=== PATIENT | female | born 1990 | race Caucasian/White ===

== ENCOUNTER 2018-02-01 10:24 | Emergency (ER) | payer OTHER, MEDICAID, SELFPAY ==
[2018-02-01 10:34] VITALS: BP 140/72; PULSE 94; RESP 15; TEMP 37.3; O2SAT 99; BMI 23.6
--- NOTE | 2018-02-01 12:08 | DI.CT.S_ITS ---
PROCEDURE: CT FACIAL BONES W CON INDICATIONS: right mandibular swelling w/ trismus - abscess? jazzy's? TECHNIQUE: After the administration of intravenous contrast, 2.5 mm axial sections acquired from the mid-neck to the frontal sinuses, with coronal and sagittal reformats. For radiation dose reduction, the following was used: automated exposure control, adjustment of mA and/or kV according to patient size. COMPARISON: None. FINDINGS: Image quality: Excellent. Soft tissues: Mild subcutaneous fat stranding overlies the right mandible. No masses, nor focal fluid collections. There is a mild enlargement of the right submandibular gland. No enlarged lymph nodes. Vascular: Visualized vascular structures appear patent throughout. Bony vascular foramina and canals appear normal. Bones: Facial bones appear intact, without fractures, erosions, or destruction. Visualized portions of the skull base and auditory canals also appear normal. Sinuses: Mild left and moderate right maxillary sinus mucosal thickening. Paranasal sinuses are otherwise aerated without fluid levels, mucosal thickening, or mucoceles. Mastoid air cells are aerated. IMPRESSION: Right facial cellulitis and right submandibular sialadenitis with no evidence of abscess. Dictated by: Deon Calderon M.D. on 02/01/2018 at 13:07 Approved by: Deon Calderon M.D. on 02/01/2018 at 13:09
[2018-02-01 12:51] LABS: Add Manual Diff / Slide Review NO; Basophils Percent Auto 0.1 % (0-2); Eosinophils Percent Auto 0.3 % (2-4); Hematocrit 40.4 % (36-46); Hemoglobin 13.7 g/dL (12.0-16.0); Lymphocytes Percent Auto 4.7 % (25-40); Mean Corpuscular HGB Conc 33.9 % (30-36); Mean Corpuscular Hemoglobin 32.6 PG (26-34); Mean Corpuscular Volume 96.1 fL (80-100); Monocytes Percent Auto 6.1 % (3-14); Neutrophils Absolute Auto 11900 /uL (3000-5900); Neutrophils Percent Auto 88.8 % (50-75); Platelet Count 150 X10^3/uL (150-400); Red Blood Cell Count 4.21 X10^6/uL (4.0-5.2); Red Cell Distribution Width 13.1 % (11.6-14.8); White Blood Cell Count 13.4 X10^3/uL (4.5-11.0)
[2018-02-01 12:55] LABS: Blood Urea Nitrogen 8 mg/dL (7-17); Calcium 9.1 mg/dL (8.4-10.2); Carbon Dioxide 27 mmol/L (22-32); Chloride 104 mmol/L (98-107); Estimated Glomerular Filt Rate > 60.0 mL/min (>60); Glucose 91 mg/dL (70-100); HEMOLYSIS 15 (0-50); Potassium 4.2 mmol/L (3.4-5.1); Sodium 139 mmol/L (137-145)
[2018-02-01] MEDS: SODIUM CHLORIDE 0.9% 1,000 ML 1000 ML IV (13:00)
[2018-02-01] MEDS: KETOROLAC 60 MG/2 ML VIAL 30 MG IV (13:00)
[2018-02-01] MEDS: DEXAMETHASONE 10 MG/ML VIAL IV (13:02)
[2018-02-01] MEDS: PIPERACILLIN-TAZO 4.5 GM/100 ML FROZ.PIGGY IV (13:08)
[2018-02-01] MEDS: KETAMINE 500 MG/5 ML INJ 10 MG IV (13:08)
[2018-02-01 15:42] VITALS: BP 109/61; PULSE 93; RESP 20; TEMP 38.2; O2SAT 100
--- NOTE | 2018-02-01 15:42 | PC.NURSE ---
Pt is wishing to be discharged. Has a wedding she is in today and wants to check on her daughter. At this time, pt has temperature of 100.8 and feels like she is getting worse. Discussed with provider. Pt still wanting to leave, but will come right back this evening. Provider discussed risk of increased swelling in this area and to call 911 if swelling is increased and she is experiencing difficulty breathing. Pt demonstrates understanding.
--- NOTE | 2018-02-01 15:57 | ED_ITS ---
HPI - Dental/Oral General Chief complaint: Dental/Oral Stated complaint: 2 ABCESS TEETH, THROAT SWOLLEN History of Present Illness HPI Narrative: HPI 27-year-old female smoker with poor dentition and prior opiate dependency now on Suboxone presents with worsening right mandibular pain, swelling, and new onset trismus in the setting of evaluation yesterday by her dentist and initiation of azithromycin for a dental infection/abscess. Denies neck stiffness , swelling on the floor of her mall, fevers, chills, headache, changes in vision or hearing. M/S/F/SocHx notable for: please see HPI; remainder reviewed with patient and in chart. ROS: Negative constitutional, eye, cardiovascular, pulmonary, GI, , MSK, skin , neurologic, psychiatric, endocrine unless noted in the HPI. Exam HR 94, BP 140/72, RR 15, T 99.1 ?F, SaO2 99 % on room air; at 10:34 AM. Gen: Pleasant, non-toxic appearing, resting comfortably HEENT: NC, AT, PEERL, EOMI. Mouth: soft tissue swelling, tenderness, but without erythema or warmth, or crepitus overlying the right mandibular job, trismus present with patient able to open mouth approximately 1.5 cm, markedly poor molar dentition on the right mandibular job, no clear gumline swelling, floor of the mouth soft without swelling or tongue elevation, no peritonsilar swelling bilaterally, uvula midline, moist mucus membranes without lesions, tongue without plaques or lesions,gumline without significant ulcerations, no bleeding, no marked halitosis. Neck: Supple with a full range of motion, no swelling, no cervical lymphdenopathy, no difficulty swallowing. Resp: Clear to auscultation bilaterally, normal work of breathing, no accessory muscle usage. Card: Regular rate and rhythm with no murmurs, rubs, or gallops, extremities warm and well perfused. GI: non-distended MSK: No visible deformities, strength and tone without visually appreciable deficit. Skin: Normal color with no visible lesions. Neuro: AO x 3, no facial asymmetry, vision and hearing WNL. Psych: Mood and affect appropriate. Labs / Imaging (pertinent): CT Maxillofacial with contrast: right facial cellulitis and right submandibular sialoadenitis with no evidence of abscess. WBC 13.4, HB 13.7, sodium 139, potassium 4.2. MDM Previous chart, nursing note, and vitals reviewed. A: 83-year-old female presents after mechanical fall from standing height with a left lateral orbital rim laceration (2/2 impact from glasses), left knee pain , and left chest wall pain. DDX: caries, pulpitis, gingivitis, periodontitis, periapical abscess, jaw osteomyelitis, Ludgwig's angina, acute necrotizing gingivitis. ED Course: 1 L NS, 30 mg Toradol, 10 mg ketamine, 10 mg Decadron, and 4.5 g Zosyn given for initial treatment. Patient with significant decrease in her trismus. Patient remains well appearing and without malaise. Discussed with ENT spa consultant, Dr. Beasley. Recommended discharge with return to care in 24 hours. Patient discharged on clindamycin. After extensive discussion with the patient regarding pain control, the option for ibuprofen and acetaminophen versus holding Suboxone for duration of opiate analgesia with resumption of Suboxone, patient wished to Patient given 10 mg oxycodone ER in the emergency department. At discharge vitals patient noted to be febrile with a temperature of 100.8?F, blood pressure and heart rate stable, discussed with the patient was the recommendation for observation hospitalization. Patient wishes to be discharged and made an informed decision. Patient is intending that she wishes to attend. Recommended patient return to care this evening for repeat evaluation. RX for clindamycin provided, RX for oxycodone 10 mg x 2 provided. Impression: facial cellulitis, submandibular sialoadenitis. (please reference below for remainder of encounter information) Related Data Previous Rx's Medication Instructions Recorded gabapentin [Neurontin] 600 mg PO TID #180 cap 01/06/16 Allergies Allergy/AdvReac Type Severity Reaction Status Date / Time acetaminophen Allergy Severe HIVES Verified 02/01/18 10:34 [From TYLENOL-CODEINE #3] codeine Allergy Severe HIVES Verified 02/01/18 10:34 [From TYLENOL-CODEINE #3] nifedipine [NIFEDIPINE] Allergy Severe HIVES Verified 02/01/18 10:34 Exam Initial Vital Signs Initial Vital Signs: Vital Signs Temperature 99.1 F 02/01/18 10:34 Pulse Rate 94 H 02/01/18 10:34 Respiratory Rate 15 02/01/18 10:34 Blood Pressure 140/72 H 02/01/18 10:34 Pulse Oximetry 99 02/01/18 10:34 Course Orders Ordered: ED Orders 02/01/18 12:08 CT facial bones w con Stat 02/01/18 12:36 Basic Metabolic Panel Stat Complete Blood Count AUTO DIFF Stat Oxycodone HCl (Oxycontin) 10 mg PO BID RADHA Discontinued Medications Dexamethasone (Decadron) 10 mg IV NOW ONE Stop: 02/01/18 12:09 Last Admin: 02/01/18 13:02 Dose: 10 mg Piperacillin/Tazobactam/Dextrose (Zosyn) 4.5 gm in 100 mls @ 200 mls/hr IV NOW ONE Stop: 02/01/18 12:37 Last Infusion: 02/01/18 14:04 Dose: 0 mls/hr Admin: 02/01/18 13:08 Dose: 200 mls/hr Sodium Chloride (Normal Saline 0.9%) 1,000 mls @ 1,000 mls/hr IV BOLUS ONE Stop: 02/01/18 13:07 Last Infusion: 02/01/18 15:41 Dose: 0 mls/hr Admin: 02/01/18 13:00 Dose: 1,000 mls/hr Ketamine HCl (Ketalar) 10 mg IV NOW ONE Stop: 02/01/18 12:09 Last Admin: 02/01/18 13:08 Dose: 10 mg Ketorolac Tromethamine (Toradol) 30 mg IV NOW ONE Stop: 02/01/18 12:09 Last Admin: 02/01/18 13:00 Dose: 30 mg Vital Signs - 8 hr 02/01/18 10:34 02/01/18 15:42 Temperature 99.1 F 100.8 F H Pulse Rate 94 H 93 H Respiratory Rate 15 20 Blood Pressure 140/72 H Blood Pressure [Right Arm] 109/61 Pulse Oximetry 99 100 MDM - Dental/Oral Lab Data Result diagrams: 02/01/18 12:36 02/01/18 12:36 Lab Results 02/01/18 02/01/18 Range/Units 12:36 12:36 WBC 13.4 H (4.5-11.0) X10^3/uL RBC 4.21 (4.0-5.2) X10^6/uL Hgb 13.7 (12.0-16.0) g/dL Hct 40.4 (36-46) % MCV 96.1 (80-100) fL MCH 32.6 (26-34) PG MCHC 33.9 (30-36) % RDW 13.1 (11.6-14.8) % Plt Count 150 (150-400) X10^3/uL Neut % (Auto) 88.8 H (50-75) % Lymph % (Auto) 4.7 L (25-40) % Mcintosh % (Auto) 6.1 (3-14) % Eos % (Auto) 0.3 L (2-4) % Baso % (Auto) 0.1 (0-2) % Neut # (Auto) 39102 H (8798-0568) /uL Sodium 139 (137-145) mmol/L Potassium 4.2 (3.4-5.1) mmol/L Chloride 104 (98-107) mmol/L Carbon Dioxide 27 (22-32) mmol/L BUN 8 (7-17) mg/dL Creatinine 0.50 L (0.52-1.04) mg/dL Estimated GFR > 60.0 (>60) mL/min BUN/Creatinine Ratio 16.0 (6-22) Glucose 91 (70-100) mg/dL Calcium 9.1 (8.4-10.2) mg/dL Discharge Plan Departure Prescriptions: No Action gabapentin [Neurontin] 300 MG capsule 600 mg PO TID Qty: 180 RF: 2
[2018-02-01] MEDS: ACETAMINOPHEN 325 MG TABLET 975 MG PO (16:04)
[2018-02-01] MEDS: OXYCODONE ER 10 MG TAB PO (16:05)
== END 2018-02-01 16:09 | disposition home or self-care (01) ==
PROVIDERS: Emergency Provider Emergency Medicine; PCP Family Medicine
DX: K11.20 Sialoadenitis, unspecified (principal); L03.211 Cellulitis of face
CPT/HCPCS: 36591; 70487; 80048; 85025; 96361; 96365; 96375; 99283; 99285; J1100; J1885; J2543; Q9967

== ENCOUNTER → 2019-08-19 10:41 | Outpatient (CLI) | payer OTHER, MEDICAID, SELFPAY ==
[2019-08-19 14:31] LABS: UR Morphine/Opiate cutoff 300 Negative (Negative); Ur Creatinine Normal (Normal); Ur Specific Gravity Normal (Normal); Urine Amphetamines Negative (Negative); Urine Barbiturates Negative (Negative); Urine Benzodiazepines Negative (Negative); Urine Cocaine Negative (Negative); Urine MDMA Negative (Negative); Urine Methadone Negative (Negative); Urine Methamphetamines Negative (Negative); Urine Oxycodone Negative (Negative); Urine Phencyclidine Negative (Negative); Urine Tetrahydrocannabinol Negative (Negative); Urine Tricyclic Antidepressant Negative (Negative); Urine pH Normal (Normal)
== END ==
PROVIDERS: Visit Provider Family Medicine
DX: Z34.81 Encounter for supervision of other normal pregnancy, first trimester (principal); Z3A.09 9 weeks gestation of pregnancy
CPT/HCPCS: 80305

== ENCOUNTER → 2019-11-06 17:44 | Outpatient (CLI) | payer OTHER, MEDICAID, SELFPAY ==
--- NOTE | 2019-11-06 17:45 | DI.US.S_ITS ---
PROCEDURE: US OB >= 14 WEEKS FETUS INDICATIONS: ANATOMIC SURVEY OUTSIDE/PRIOR DATING DATA: Last menstrual period (LMP): 06/14/19. LMP-based estimated date of delivery (MAYNOR): 03/20/20. First dating scan (date and location): 11/06/19. Estimated date of delivery (MAYNOR) from first dating scan: 03/22/20. TECHNIQUE: Real-time scanning was performed of the fetus, with image documentation and biometric measurements. Endovaginal scanning: Not performed COMPARISON: None. FINDINGS: General: A single living intrauterine gestation is present. Presentation: Variable Placenta: Placental position is posterior, without previa. Amniotic fluid index: 17.9 cm, normal range is 5-24 cm. heart rate: 143 beats per minute. Maternal cervical canal: Not well-seen Normal lower limit is 2.5 cm. biometrics: Biparietal diameter: 4.8 cm, 20 weeks, 4 days Head circumference: 17.8 cm, 20 weeks, 2 days Abdominal circumference: 15.7 cm, 20 weeks, 6 days Femur length: 3.3 cm, 20 weeks, one day Estimated gestational age from initial scan: 20 weeks, 5 days. Composite gestational age from present scan: 20 weeks, 3 days Estimated weight and percentile: 359 g, 34% Measurement variability for biometric dating: +/- 7 days from 14 weeks to 15 weeks 6 days gestation, +/- 10 days from 16 weeks to 21 weeks 6 days gestation, +/- 2 weeks from 22 weeks to 27 weeks 6 days gestation, +/- 3 weeks for 28 weeks gestation or later. weight reference: 4500 g or EFW >90/95% is considered macrosomia or large for gestational age. EFW <10% is small for gestational age. EFW 5% or less is considered intra-uterine growth restriction. Anatomic survey: Neuro: Ventricles are non-dilated at less than 10 mm. Cisterna magna is normal at 3-11 mm. Cerebellum is normal in size and morphology. Nuchal skin fold: Normal at less than 6 mm between 14-21 weeks gestational age. Face: Nose and lips, facial profile are normal. Spine: No evidence for spina bifida. Heart: 4-chambered heart is present, with normal ventricular outflow tracts. Diaphragm: Diaphragm is intact. Stomach: Left-sided stomach is present. Kidneys: No hydronephrosis. Normal is less than 5 mm in 2nd trimester, less than 7 mm in 3rd trimester. Cord: 3-vessel cord has orthotopic insertion. Bladder: Normal in size. Extremities: All 4 extremities identified. IMPRESSION: 1. Single live intrauterine with fetus in variable presentation. Normal growth. Normal amount of amniotic fluid. 2. Normal anatomic survey. Dictated by: Sammy Sykes M.D. on 11/07/2019 at 10:14 Approved by: Sammy Sykes M.D. on 11/07/2019 at 10:18
== END ==
PROVIDERS: Referring Provider Family Medicine; Visit Provider Family Medicine
DX: Z34.82 Encounter for supervision of other normal pregnancy, second trimester (principal)
CPT/HCPCS: 76811

== ENCOUNTER 2019-12-29 10:56 | Emergency (ER) | payer OTHER, MEDICAID, SELFPAY ==
[2019-12-29 11:16] VITALS: BP 128/75; PULSE 89; RESP 18; TEMP 36.6; O2SAT 98
[2019-12-29] MEDS: LIDOCAINE PATCH 1 EACH ADH..PATCH TOP (11:58)
--- NOTE | 2019-12-29 12:56 | PC.NURSE ---
Pt not in room.
--- NOTE | 2019-12-29 12:56 | PC.NURSE ---
Pt not in room, checked bathrooms, outside, asked staff. Pt was seen leaving approximately 1215 by registration.
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
== END 2019-12-29 13:06 | disposition left against medical advice (07) ==
PROVIDERS: Emergency Provider Nurse Practitioner Family; PCP Family Medicine
DX: S39.92XA Unspecified injury of lower back, initial encounter (principal)
CPT/HCPCS: 99281; 99282

== ENCOUNTER → 2020-01-27 17:43 | Outpatient (CLI) | payer OTHER, MEDICAID, SELFPAY ==
[2020-01-27 18:05] LABS: Add Manual Diff / Slide Review NO; Basophils Absolute Auto 0 /uL (0-100); Basophils Percent Auto 0.3 % (0-2); Eosinophils Absolute Auto 0 /uL (0-450); Hematocrit 32.1 % (36-46); Lymphocytes Absolute Auto 1600 /uL (1100-4500); Lymphocytes Percent Auto 11.5 % (25-40); Mean Corpuscular HGB Conc 34.4 % (30-36); Mean Corpuscular Hemoglobin 31.9 PG (26-34); Monocytes Absolute Auto 700 /uL (0-900); Monocytes Percent Auto 5.5 % (3-14); Neutrophils Absolute Auto 11300 /uL (1500-7000); Neutrophils Percent Auto 82.7 % (50-75); Platelet Count 192 X10^3/uL (150-400); Red Blood Cell Count 3.45 X10^6/uL (4.0-5.2); Red Cell Distribution Width 13.8 % (11.6-14.8); White Blood Cell Count 13.6 X10^3/uL (4.5-11.0)
[2020-01-28 19:33] LABS: Hepatitis B Surface Antigen NEGATIVE s/c (NEGATIVE); Rubella Antibody IgG 13.9 IU/mL (>15)
[2020-01-28 19:56] LABS: HIV 1 & 2 Ab/Ag 4th Gen Combo NEGATIVE (NEGATIVE); Hep C Virus Ab w/Reflex Quant NEGATIVE s/c (NEGATIVE)
[2020-01-29 07:15] LABS: Varicella IgG Antibody 2320 index (Immune >165)
[2020-01-29 08:12] LABS: RPR Screen Non Reactive (Non Reactive)
== END ==
PROVIDERS: PCP Family Medicine; Referring Provider Family Medicine; Visit Provider Family Medicine
DX: Z34.81 Encounter for supervision of other normal pregnancy, first trimester (principal)
CPT/HCPCS: 36415; 80055; 86787; 86803; 86850; 86900; 86901; 87389

== ENCOUNTER 2020-02-12 21:07 | Outpatient (CLI) | payer OTHER, MEDICAID, SELFPAY ==
--- NOTE | 2020-02-13 06:29 | PM.OBTRLD ---
Visit Information Visit Information Date of evaluation: 02/12/20 Primary OB Provider: Quirino Merchant On-call OB Provider: Vannessa Guan Reason for Evaluation: Yes rupture of membranes Comments/Additional reasons for admission: 29yo at 34w6d who presented with worsening swelling, headache, and concern for LOF. The pt reports that when she woke this morning, she felt her underwear were soaked. Throughout the day, she has continued to feel wet and sticky. She has changed her underwear multiple times. The pt has also had 5 days of intermittent headache and worsening swelling. She denies any RUQ pain. She has had vision changes throughout her with blurring, no new changes. She denies any vaginal bleeding or contractions. [facility] Social History Smoking Status: Former smoker Evaluation Evaluation Baseline heart rate: 140 Variability: Moderate (11-25) monitor accelerations: Present monitor decelerations: Absent Diagnosis, Plan/Disposition Final Diagnosis (1) complicated by Suboxone maintenance, antepartum: Status: Acute (2) Headache: Status: Acute (3) Swelling of lower extremity: Status: Acute (4) Fluid loss: Status: Acute Plan/Disposition Plan: 29yo at 34w6d here with swelling, headache, and concern for LOF. BP in normal range. Headache mild and intermittent. Swelling minimal as per nursing. Pt will continue to monitor symptoms, however no need for additional work-up for pre-eclampsia at this time. On exam by nursing, pt was noted to have very wet perineal area. Initial amniosure negative, repeated one hour later due to exam and remained negative. Safe for discharge home. Pt continues on Suboxone, actively working on weaning. Potentially contributing to headache. Recommended discussing Suboxone and delivery plans with her provider at her next appt. OB Disposition: home
== END 2020-02-12 23:00 | disposition home or self-care (01) ==
LOC: LABOR 21:42 → OB 02-15 12:28
PROVIDERS: PCP Family Medicine; Referring Provider Family Medicine; Visit Provider Family Medicine
DX: O99.323 Drug use complicating pregnancy, third trimester (principal); F11.90 Opioid use, unspecified, uncomplicated; R51 Headache; R60.0 Localized edema; N89.8 Other specified noninflammatory disorders of vagina; Z3A.34 34 weeks gestation of pregnancy
CPT/HCPCS: 59025; 84112; 87210; G0378; G0379

== ENCOUNTER → 2020-03-01 16:22 | Outpatient (CLI) | payer OTHER, MEDICAID, SELFPAY ==
[2020-03-02 15:47] LABS: Strep Grp B PCR NEG for Grp B Strep
== END ==
PROVIDERS: PCP Family Medicine; Visit Provider Family Medicine
DX: Z34.83 Encounter for supervision of other normal pregnancy, third trimester (principal); Z3A.37 37 weeks gestation of pregnancy
CPT/HCPCS: 87653

== ENCOUNTER 2020-03-15 17:57 | Inpatient (IN) | payer OTHER, MEDICAID, SELFPAY ==
[2020-03-15] MEDS: LACTATED RINGERS 1,000 ML 100 ML IV ×2 (18:00→19:19)
[2020-03-15 18:06] VITALS: BP 129/78
[2020-03-15 18:34] LABS: Add Manual Diff / Slide Review NO; Basophils Absolute Auto 0 /uL (0-100); Basophils Percent Auto 0.3 % (0-2); Eosinophils Absolute Auto 0 /uL (0-450); Eosinophils Percent Auto 0.1 % (2-4); Hematocrit 34.7 % (36-46); Hemoglobin 11.7 g/dL (12.0-16.0); Lymphocytes Absolute Auto 2000 /uL (1100-4500); Lymphocytes Percent Auto 12.4 % (25-40); Mean Corpuscular HGB Conc 33.8 % (30-36); Mean Corpuscular Hemoglobin 30.4 PG (26-34); Mean Corpuscular Volume 89.9 fL (80-100); Monocytes Absolute Auto 900 /uL (0-900); Monocytes Percent Auto 5.8 % (3-14); Neutrophils Absolute Auto 12800 /uL (1500-7000); Neutrophils Percent Auto 81.4 % (50-75); Platelet Count 168 X10^3/uL (150-400); Red Blood Cell Count 3.86 X10^6/uL (4.0-5.2); Red Cell Distribution Width 14.5 % (11.6-14.8); White Blood Cell Count 15.7 X10^3/uL (4.5-11.0)
[2020-03-15 18:34] LABS: COVID19 -Nasal RAPID Negative (Negative)
[2020-03-15] MEDS: OXYTOCIN 10 UNIT/ML VIAL 20 UNIT (23:20)
--- NOTE | 2020-03-15 23:33 | P.PCNOB_ITS ---
Events: Rh Incompatibility Labor & Delivery Delivery date: 03/15/20 Intrapartal events: None Cervical ripening method: none Induction method: none Delivery monitor: external FHT Route of delivery: Episiotomy description: None L&D Laceration Description: None Estimated blood loss (mL): 200 Anesthesia type: Epidural Narrative: Stage I. Patient arrived to the center at approximately 6:30 p.m.. Abhi uncomfortable 5.5 cm without rupture fluid requesting an epidural. Patient received epidural anesthesia at the time she had a rupture of membranes with some clear fluid. During stage I of labor patient had good co ntractions. With adequate pain relief and good descent into the canal. She had some variable D cells. The baby heart rate. Mom was comfortable. Approximately 10:30 p.m. patient became complete and had pressure consistent with that. Stage II. Approximately 10 minutes. Patient pushed from +2 station to with the 2 pushes. She had rupture of a 4 bag of fluid which was clear. She then had delivery of the head baby was in vertex position. No nuchal cord. At the delivery of the head baby came out without problems. During stage II patient had reassuring heart tones. Stage III. Delivery of viable female infant. Baby was vigorous and active. Baby was delivered on mother's abdomen there was delayed cord clamping. Cord was then cut transected. Baby and mom resting comfortably inspection of the vagina so no cervical or vaginal lacerations patient was given 10 units IM PET after the delivery of the baby shoulders. Had delivery of intact placenta with three-vessel cord.
[2020-03-16 06:16] LABS: Hematocrit 29.5 % (36-46); Hemoglobin 9.9 g/dL (12.0-16.0)
--- NOTE | 2020-03-16 07:29 | P.HPOB_ITS ---
OB HPI Date/Time Date of admission: 03/15/20 Date Patient Seen: 03/15/20 Time Patient Seen: 11:00 History of Present Condition Chief complaint: OBSERVATION OF LABOR : 2 Para: 1 Estimated Date of Delivery: 03/19/20 Estimated Gestational Age (weeks): 39 3 Narrative: Stephany Candelaria is a 29 year old female G2 para 1 at 39 weeks gestational age in labor. care complicated by poor care with unreliable visits with multiple attempts made to provide continued ongoing care. Suboxone use up until 36 weeks of and daily tobacco use. History of Present care: limited care, initiated at week # (9) and number of visits Dating criteria: LMP confirmed by 1st trimester US Ultrasounds: normal mid trimester US Obstetrical complications: other (Use of Suboxone during . Limited care with poor follow-up. Tobacco use.) Medical complications: none Preadmission Labs Blood type: 0 (-) negative -: Antibody screen: negative, GBS status: negative, HBsAG: negative and HIV: negative -: Chlamydia screen: not detected and Gonorrhea screen: not detected -: Rubella: not immune and Varicella: immune PAP: Normal Evaluation Evaluation Laboratory results: Laboratory Tests 03/15/20 03/15/20 03/15/20 18:10 18:15 18:15 WBC 15.7 H RBC 3.86 L Hgb 11.7 L Hct 34.7 L MCV 89.9 MCH 30.4 MCHC 33.8 RDW 14.5 Plt Count 168 Neut % (Auto) 81.4 H Lymph % (Auto) 12.4 L [place] % (Auto) 5.8 Eos % (Auto) 0.1 L Baso % (Auto) 0.3 Neut # (Auto) 99036 H Lymph # (Auto) 2000 [place] # (Auto) 900 Eos # (Auto) 0 Baso # (Auto) 0 COVID-19 PCR Negative Blood Type O Negative Antibody Screen Negative 03/16/20 05:30 WBC RBC Hgb 9.9 L Hct 29.5 L MCV MCH MCHC RDW Plt Count Neut % (Auto) Lymph % (Auto) [place] % (Auto) Eos % (Auto) Baso % (Auto) Neut # (Auto) Lymph # (Auto) [place] # (Auto) Eos # (Auto) Baso # (Auto) COVID-19 PCR Blood Type Antibody Screen PFSH Social History Smoking Status: Former smoker Meds Home Medications and Allergies Home Medications Medication Instructions Recorded Confirmed Type acetaminophen 1,000 mg PO QID #32 cap 02/01/18 03/15/20 Rx gabapentin 600 mg tablet 600 mg PO BID 08/19/19 03/15/20 History buprenorphine 4 mg-naloxone 1 mg 1 film SL Q24H 09/18/19 03/15/20 History sublingual film Allergies Allergy/AdvReac Type Severity Reaction Status Date / Time codeine Allergy Severe HIVES Verified 03/15/20 15:21 [From TYLENOL-CODEINE #3] nifedipine [NIFEDIPINE] Allergy Severe HIVES Verified 03/15/20 15:21 Exam Vital Signs (past 8 hours): . General: Alert no apparent distress. Affect is appropriate. Abhi it is uncomfortable. HEENT: Neck is supple without lymphadenopathy pupils equal round and reactive. Cardio: S1-S2 regular rate and rhythm. Respiratory: Lungs clear to auscultation. Abdomen: Gravid. Extremities: Normal deep tendon reflexes trace edema. [place]: Abhi regularly every 3-5 minutes with 60 minute contractions moderate and strength. heart tones: Category 1 Objective Labs Result Diagrams: 03/16/20 05:30 Labs: Laboratory Results - last 24 hr 03/15/20 03/15/20 03/15/20 18:10 18:15 18:15 WBC 15.7 H RBC 3.86 L Hgb 11.7 L Hct 34.7 L MCV 89.9 MCH 30.4 MCHC 33.8 RDW 14.5 Plt Count 168 Neut % (Auto) 81.4 H Lymph % (Auto) 12.4 L [place] % (Auto) 5.8 Eos % (Auto) 0.1 L Baso % (Auto) 0.3 Neut # (Auto) 67244 H Lymph # (Auto) 2000 [place] # (Auto) 900 Eos # (Auto) 0 Baso # (Auto) 0 COVID-19 PCR Negative Blood Type O Negative Antibody Screen Negative 03/16/20 05:30 WBC RBC Hgb 9.9 L Hct 29.5 L MCV MCH MCHC RDW Plt Count Neut % (Auto) Lymph % (Auto) [place] % (Auto) Eos % (Auto) Baso % (Auto) Neut # (Auto) Lymph # (Auto) [place] # (Auto) Eos # (Auto) Baso # (Auto) COVID-19 PCR Blood Type Antibody Screen Assessment and Plan Assessment and Plan Assessment and Plan narrative: 29-year-old G2 para 1 with complicated care history complicated by Suboxone use and poor follow-up. In active labor. Patient requesting an epidural in his 5 cm she is not ruptured. Vital signs are stable category 1 heart tracing. OB care orders were written for after patient evaluation. GBS status is negative.
--- NOTE | 2020-03-16 07:37 | P.DS_ITS ---
History of Present Illness History of Present Illness Chief complaint: Labor & Delivery Discharge Providers Provider Date of admission: 03/15/20 17:57 Discharge Date: 03/16/20 Primary care physician: Quirino Merchant MD Consults: 03/16/20 23:30 Consult to Cashier Host/Hostess Routine Comment: Discharge provider: Quirino Merchant MD Summary Hospital Course Discharge Diagnosis: Delivery of viable female vaginally. Hospital Course: Routine post vaginal delivery care Exam Vital Signs (past 8 hours): General: Alert no apparent distress. Affect is appropriate. Abhi it is uncomfortable. HEENT: Neck is supple without lymphadenopathy pupils equal round and reactive. Cardio: S1-S2 regular rate and rhythm. Respiratory: Lungs clear to auscultation. Abdomen: Uterus firm. Incision clean dry and intact. Extremities: Normal deep tendon reflexes trace edema. Objective Labs Result Diagrams: 03/16/20 05:30 Labs: Laboratory Results - last 24 hr 03/15/20 03/15/20 03/15/20 18:10 18:15 18:15 WBC 15.7 H RBC 3.86 L Hgb 11.7 L Hct 34.7 L MCV 89.9 MCH 30.4 MCHC 33.8 RDW 14.5 Plt Count 168 Neut % (Auto) 81.4 H Lymph % (Auto) 12.4 L [place] % (Auto) 5.8 Eos % (Auto) 0.1 L Baso % (Auto) 0.3 Neut # (Auto) 80213 H Lymph # (Auto) 2000 [place] # (Auto) 900 Eos # (Auto) 0 Baso # (Auto) 0 COVID-19 PCR Negative Blood Type O Negative Antibody Screen Negative 03/16/20 05:30 WBC RBC Hgb 9.9 L Hct 29.5 L MCV MCH MCHC RDW Plt Count Neut % (Auto) Lymph % (Auto) [place] % (Auto) Eos % (Auto) Baso % (Auto) Neut # (Auto) Lymph # (Auto) [place] # (Auto) Eos # (Auto) Baso # (Auto) COVID-19 PCR Blood Type Antibody Screen Discharge Plan Discharge Plan Patient Disposition: Home Discharge orders & Medications Prescriptions: New docusate sodium [DOK] 100 mg Capsule 100 mg PO DAILY Qty: 30 RF: 0 ibuprofen 600 mg Tablet 600 mg PO Q6HR PRN (Reason: Pain, Mild (1-3)) Qty: 30 RF: 0 hydrocodone-acetaminophen 5-325 mg tablet 1 tab PO BID PRN (Reason: pain) Qty: 20 RF: 0 Continued gabapentin 600 mg tablet 600 mg PO BID RF: 0 acetaminophen 500 mg capsule 1,000 mg PO QID Qty: 32 RF: 0 Discontinued buprenorphine-naloxone [Suboxone] 4-1 mg film 1 film SL Q24H RF: 0 No Action oxycodone 5 mg tablet 5 mg PO BID PRN (Reason: pain) Qty: 10 RF: 0 Follow up/Referrals: Quirino Merchant MD [Primary Care Provider] - 6 Weeks (April 19Saturday at 10AM with Dr Merchant) Visit Report/Discharge Packet Stand Alone Forms: Discharge: Care Visit Report Forms: Patient Portal/API, Stroke Signs & Symptoms Discharge Data Primary Care Provider: Quirino Merchant Discharges patient from system. Discharge Date/Time: 03/16/20 12:25
[2020-03-16 10:19] VITALS: BP 128/82; PULSE 80; RESP 16; TEMP 36.6
[2020-03-16 12:08] VITALS: BP 128/82; PULSE 80; RESP 16; TEMP 36.6
[2020-03-16] MEDS: RHO(D) IMMUNE GLOBULIN 1,500 UNIT SYRINGE 1500 UNIT IM (12:15)
== END 2020-03-16 12:25 | disposition home or self-care (01) | DRG 560 ==
PROVIDERS: Admitting Provider Family Medicine; PCP Family Medicine; Referring Provider Family Medicine; Visit Provider Family Medicine
DX: O99.334 Smoking (tobacco) complicating childbirth (principal); Z3A.39 39 weeks gestation of pregnancy; Z37.0 Single live birth; O36.0930 Maternal care for other rhesus isoimmunization, third trimester, not applicable or unspecified; Z11.59 Encounter for screening for other viral diseases
CPT/HCPCS: 01967; 36415; 59050; 59409; 85014; 85018; 85025; 85461; 86850; 86900; 86901; 87635; G0379; J2590; J2790